=== PATIENT | female | born 1970 | race African-American/Black ===

== ENCOUNTER → 2021-06-10 | Outpatient (CLI) | payer MEDICARE, OTHER | LOC: MAMMO 08:23 | PROVIDERS: ATTEND Family Medicine | DX: N64.4 Mastodynia (principal) | CPT/HCPCS: 77066 ==

== ENCOUNTER 2021-07-04 07:57 | Emergency (ER) | payer MEDICARE, OTHER ==
[~2021-07-04] VITALS: Ht 165.1 cm; Wt 101.6 kg
[2021-07-04 09:39] VITALS: BP 123/85
== END 2021-07-04 09:56 | disposition home or self-care (01) ==
LOC: ER 08:07
DX: S93.402A Sprain of unspecified ligament of left ankle, initial encounter (principal); X50.1XXA Overexertion from prolonged static or awkward postures, initial encounter; Y93.01 Activity, walking, marching and hiking; Y92.89 Other specified places as the place of occurrence of the external cause; Z98.84 Bariatric surgery status
CPT/HCPCS: 99283

== ENCOUNTER → 2022-03-04 | Outpatient (CLI) | payer OTHER | LOC: RAD 15:00 | PROVIDERS: ATTEND Family Medicine | DX: S99.921D Unspecified injury of right foot, subsequent encounter (principal) ==

== ENCOUNTER → 2022-06-13 | Outpatient (CLI) | payer OTHER | LOC: MAMMO 10:17 | PROVIDERS: ATTEND Family Medicine | DX: Z12.31 Encounter for screening mammogram for malignant neoplasm of breast (principal) | CPT/HCPCS: 77067 ==

== ENCOUNTER 2024-04-24 19:09 | Emergency (ER) | payer OTHER ==
[~2024-04-24] VITALS: Ht 165.1 cm; Wt 93.0 kg
[~2024-04-24 19:09] MED LIST: MEDROL4 M2 PO; TRIAMCINOLONE A15 G1 TOP
[2024-04-24] MEDS: KETOROLAC TROMETHAMINE 60 MG/2 ML VIAL IM STA (19:34)
[2024-04-24] MEDS ORDERED: KETOROLAC TROME10 MG PO (21:33)
[2024-04-24 21:36] VITALS: PULSE 69; RESP 18; TEMP 98.7; O2SAT 99
== END 2024-04-24 21:45 | disposition home or self-care (01) ==
LOC: ER 19:25
DX: M25.512 Pain in left shoulder (principal); I10 Essential (primary) hypertension; Z98.84 Bariatric surgery status
CPT/HCPCS: 29240; 72125; 73030; 93005; 99283; J1885